=== PATIENT | male | born 1990 | race Caucasian/White ===

== ENCOUNTER 2022-03-17 18:14 | Inpatient (IN) ==
[2022-03-17] MEDS ORDERED: SODIUM CHLORIDE 0.9% 1,000 ML IV STA (19:13)
[2022-03-17 19:33] LABS: Basophils % 0.1 % (0.0-0.8); Eosinophils # 0.1 10*3/uL (0.0-0.87); Eosinophils % 0.5 % (0.00-10.9); Hematocrit 41.2 VOL% (42.0-52.0); Immature Granulocytes % 0.4 %; Immature Granulocytes Absolute 0.06 #; Lymphocytes # 1.1 10*3/uL (1.4-4.0); Lymphocytes % 8.1 % (21.2-54.2); Mean Corpuscular Volume 88.4 FL (87-102); Mean Platelet Volume 11.1 FL (9.6-12.0); Monocytes # 0.5 10*3/uL (0.11-0.8); Monocytes % 3.9 % (1.7-12.7); Platelet Count 156 T/CUMM (130-400); Red Blood Count 4.66 MC/CUMM (3.8-5.5); Red Cell Distribution Width 12.3 % (9.3-17.3); White Blood Count 13.9 T/CUMM (4-12)
[2022-03-17 19:45] LABS: Albumin 3.3 G/DL (3.4-5.0); Bilirubin,Total 0.5 MG/DL (0.20-1.00); Calcium 10.3 MG/DL (8.5-10.1); Osmolality,Calculated 283.3 MOS/KG (273-304); Potassium 4.1 MMOL/L (3.5-5.1); Total Protein 6.6 G/DL (6.4-8.2)
[2022-03-17 19:47] LABS: Bacteria,Urine Occasional /HPF (Few); Mucus,Urine Many /LPF (Occasional); RBC,Urine 2664 /HPF (0-4); Urine Color Brown (Yellow)
[2022-03-17 19:48] LABS: Bilirubin,Urine Small mg/dL (Negative); Blood, Urine Large mg/dL (Negative); Glucose,Urine (UA) 100 mg/dL (Negative); Ketones,Urine Negative (Negative); Nitrite,Urine Positive (Negative); Protein,Urine >=300 mg/dL (Negative); Urine Appearance Turbid (Clear); Urine Specific Gravity >= 1.030 (1.001-1.035); Urine Urobilinogen 0.2 eU/dL (<2.0)
[2022-03-17] MEDS ORDERED: LEVOFLOXACIN INJ 500 MG/100 ML PREMIX IV ONE (20:00)
[2022-03-17] MEDS ORDERED: GLUCAGON 1 MG VIAL IM PRN (20:37)
[2022-03-17] MEDS ORDERED: hydrALAZINE 20 MG/1 ML VIAL IV PRN (20:41)
[2022-03-17] MEDS ORDERED: ACETAMINOPHEN 325 MG TABLET PO PRN (20:41)
[2022-03-17] MEDS ORDERED: HYDROmorphone 1 MG/1 ML SYRINGE IV STA (20:49)
[2022-03-17] MEDS ORDERED: ONDANSETRON 4 MG/2 ML VIAL IV STA (20:50)
[2022-03-17] MEDS ORDERED: DEXTROSE 10% 250 ML BAG IV PRN (20:52)
[2022-03-17] MEDS: SODIUM CHLORIDE 0.45% 1,000 ML IV SCH (21:00)
[2022-03-17] MEDS: DOCUSATE SODIUM 100 MG CAPSULE PO SCH (22:01)
[2022-03-18 05:31] LABS: Basophils % 0.2 % (0.0-0.8); Eosinophils # 0.2 10*3/uL (0.0-0.87); Eosinophils % 3.3 % (0.00-10.9); Hemoglobin 12.5 GM/DL (14.0-18.0); Immature Granulocytes % 0.2 %; Immature Granulocytes Absolute 0.01 #; Lymphocytes # 2.8 10*3/uL (1.4-4.0); Lymphocytes % 47.9 % (21.2-54.2); Mean Corpuscular HGB Conc 33.8 GM/DL (32-36); Mean Corpuscular Volume 88.9 FL (87-102); Mean Platelet Volume 10.7 FL (9.6-12.0); Monocytes # 0.5 10*3/uL (0.11-0.8); Neutrophils % 40.4 % (38.7-73.9); Platelet Count 152 T/CUMM (130-400); Red Blood Count 4.16 MC/CUMM (3.8-5.5); Red Cell Distribution Width 12.5 % (9.3-17.3); White Blood Count 5.8 T/CUMM (4-12)
[2022-03-18 05:55] LABS: Osmolality,Calculated 282.3 MOS/KG (273-304)
[2022-03-18] MEDS: SODIUM CHLORIDE 0.45% 1,000 ML IV SCH ×3 (08:25→18:10)
[2022-03-18] MEDS: PANTOPRAZOLE 40 MG TABLET PO SCH (09:45)
[2022-03-18] MEDS: DOCUSATE SODIUM 100 MG CAPSULE PO SCH ×2 (09:45→21:49)
[2022-03-18] MEDS: HYDROmorphone 1 MG/1 ML SYRINGE IV PRN (09:50)
[2022-03-18] MEDS ORDERED: LEVOFLOXACIN INJ 750 MG/150 ML PREMIX IV SCH (21:00)
[2022-03-18] MEDS: cefTRIAXone 1,000 MG in SODIUM CHLORIDE 0.9% 100 ML IV SCH (23:21)
[2022-03-19] MEDS: SODIUM CHLORIDE 0.45% 1,000 ML IV SCH ×2 (05:26→13:04)
[2022-03-19] MEDS: ONDANSETRON 4 MG/2 ML VIAL IV PRN ×2 (08:23→18:29)
[2022-03-19] MEDS: HYDROmorphone 1 MG/1 ML SYRINGE IV PRN ×3 (08:23→21:22)
[2022-03-19 08:36] LABS: Calcium 10.7 MG/DL (8.5-10.1); Osmolality,Calculated 278.4 MOS/KG (273-304); Potassium 4.2 MMOL/L (3.5-5.1)
[2022-03-19 09:07] LABS: Basophils % 0.2 % (0.0-0.8); Eosinophils # 0.3 10*3/uL (0.0-0.87); Eosinophils % 5.1 % (0.00-10.9); Hematocrit 40.2 VOL% (42.0-52.0); Hemoglobin 13.8 GM/DL (14.0-18.0); Immature Granulocytes % 0.4 %; Immature Granulocytes Absolute 0.02 #; Lymphocytes # 2.2 10*3/uL (1.4-4.0); Lymphocytes % 38.2 % (21.2-54.2); Mean Corpuscular HGB Conc 34.3 GM/DL (32-36); Mean Platelet Volume 10.4 FL (9.6-12.0); Monocytes # 0.3 10*3/uL (0.11-0.8); Neutrophils % 50.1 % (38.7-73.9); Platelet Count 148 T/CUMM (130-400); Red Blood Count 4.57 MC/CUMM (3.8-5.5); Red Cell Distribution Width 12.4 % (9.3-17.3); White Blood Count 5.7 T/CUMM (4-12)
[2022-03-19] MEDS: PANTOPRAZOLE 40 MG TABLET PO SCH (09:41)
[2022-03-19] MEDS: DOCUSATE SODIUM 100 MG CAPSULE PO SCH ×2 (09:41→21:03)
[2022-03-19] MEDS ORDERED: LACTATED RINGERS 1,000 ML IV SCH (12:00)
[2022-03-19] MEDS ORDERED: propofoL 200 MG/20 ML VIAL IV ONE (12:46)
[2022-03-19] MEDS ORDERED: ONDANSETRON 4 MG/2 ML VIAL ONE (12:46)
[2022-03-19] MEDS ORDERED: LIDOCAINE 2% 5 ML VIAL ONE (12:46)
[2022-03-19] MEDS ORDERED: MIDAZOLAM 2 MG/2 ML VIAL ONE (12:57)
[2022-03-19] MEDS ORDERED: fentaNYL 100 MCG/2 ML VIAL ONE (12:57)
[2022-03-19] MEDS ORDERED: cefTRIAXone 1,000 MG VIAL ONE (13:16)
[2022-03-19] MEDS ORDERED: SODIUM CHLORIDE 0.9% 1,000 ML IV ONE (13:38)
[2022-03-19] MEDS ORDERED: SEVOFLURANE 1 UNIT/15 MINUTE INH ONE (14:25)
[2022-03-19] MEDS ORDERED: KETOROLAC 30 MG/1 ML VIAL IV ONE (15:00)
[2022-03-19] MEDS: cefTRIAXone 1,000 MG in SODIUM CHLORIDE 0.9% 100 ML IV SCH (23:34)
[2022-03-20] MEDS: SODIUM CHLORIDE 0.45% 1,000 ML IV SCH (00:35)
[2022-03-20] MEDS: ONDANSETRON 4 MG/2 ML VIAL IV PRN (01:00)
[2022-03-20] MEDS: HYDROmorphone 1 MG/1 ML SYRINGE IV PRN (01:04)
[2022-03-20] MEDS: PANTOPRAZOLE 40 MG TABLET PO SCH (08:55)
[2022-03-20] MEDS: DOCUSATE SODIUM 100 MG CAPSULE PO SCH (08:55)
[2022-03-20 12:37] VITALS: BP 123/78
== END 2022-03-20 15:52 | disposition home or self-care (01) | DRG 661 ==
LOC: EDUNIT# → N.ED 18:14 → N.EDINP 20:37 → N.TELEN 03-18 04:03
PROVIDERS: ADMIT Internal Medicine Geriatric Medicine; ATTEND Internal Medicine Geriatric Medicine